=== PATIENT | female | born 1980 | race Caucasian/White ===

== ENCOUNTER 2019-06-25 18:08 | Emergency (ER) | payer OTHER ==
[~2019-06-25] VITALS: Ht 160 cm; Wt 90.7 kg
[2019-06-25] MEDS ORDERED: PROMETHAZINE HC25 MG PO (21:14)
[2019-06-25] MEDS ORDERED: PEPCID AC20 MG PO (21:14)
== END 2019-06-25 21:32 | disposition home or self-care (01) ==
LOC: ER 18:08
DX: K29.60 Other gastritis without bleeding (principal); T40.7X5A Adverse effect of cannabis (derivatives), initial encounter; Y92.89 Other specified places as the place of occurrence of the external cause